=== PATIENT | female | born 1955 | race Caucasian/White ===

== ENCOUNTER 2017-02-25 00:26 | Observation (INO) ==
[2017-02-25] MEDS ORDERED: Ipratropium/Albuterol Neb 3 ML IH ONE ×2 (00:40→00:43)
--- NOTE | 2017-02-25 01:02 | Emergency Department Note ---
Disposition Clinical Impression: Pneumonia Disposition: Admitted As Inpatient Condition: Fair Time of Disposition: 02:15 URI/Sore Throat HPI - General Chief Complaint: ED Upper Respiratory Infection Stated Complaint: body aches, productive yellow/green cough Time Seen by Provider: 02/25/17 00:35 Source: patient Mode of arrival: ambulatory Limitations: no limitations Nursing Notes Reviewed: Yes Vital Signs Reviewed: Yes - History of Present Illness HPI Narrative: Slightly treated for an upper respiratory tract infection about a week ago started getting a bit better than start spiking fevers this past week she has had fever chills cough congestion runny nose bringing up thick yellow tenacious phlegm denies any apnea or cyanosis patient states that she is just not getting any better rise any abdominal pain or discomfort denies burning or urgency stinging any rashes or lesions migraine numbness tingling patient has dyspnea with activity worse than usual states she broke out with blisters on her lips on Sunday Pt Subjective Complaint: fever, cough, sore throat, nasal congestion Onset (ago): week(s) Duration: intermittent, gradually worsening Severity: moderate, severe Severity scale (1-10): 8 Improves with: nothing Worsens with: exertion If sputum, description: yellow, green Context: sick contacts Associated symptoms: Reports: fever, chills, myalgias, nasal congestion, cough, shortness of breath. Denies: voice changes, diaphoresis, headache, rhinorrhea, sore throat, stiff neck, chest pain, abdominal pain, nausea, vomiting, diarrhea , dysuria, rash, ear pain Treatments prior to arrival: acetaminophen, ibuprofen, antibiotics, other healthcare encounter for this problem - Related Data Home Medications Medication Instructions Recorded Confirmed Meloxicam 15 mg PO Q4-6H PRN 05/30/16 05/30/16 Promethazine Syrup [Phenergan 6.25 mg PO Q4HR PRN 05/30/16 05/30/16 Syrup] Previous Rx's Medication Instructions Recorded Acyclovir [Zovirax] 800 mg PO 5XD #35 tablet 05/30/16 Aquaphor/Maalox 1 appl TP Q6-8H #50 bottle 05/30/16 Ciprofloxacin [Cipro] 500 mg PO BID #20 tablet 05/30/16 HYDROcodone/Acet 5/325 mg [Elmer 1 tab PO Q6H #16 tab 05/30/16 5-325 mg] Mag Hydrox/Al Hydrox/Simeth 5 ml PO Q4H #200 oral.susp 05/30/16 [Maalox Advanced Suspension] Allergies Allergy/AdvReac Type Severity Reaction Status Date / Time codeine Allergy Palpitation Verified 10/19/14 11:45 s Penicillins [PCN] Allergy Rash Verified 10/19/14 11:45 adhesive AdvReac Rash Verified 10/19/14 11:45 latex AdvReac Rash Verified 10/19/14 11:45 All systems ED: reviewed and negative except as stated. Review of Systems: As Per HPI Constitutional: Reports: fever, chills, weakness Eyes: Denies: eye pain, eye discharge ENT ED: Reports: congestion. Denies: ear pain, throat pain, dental pain Cardiovascular: Denies: chest pain, palpitations, dyspnea on exertion Respiratory: Reports: cough, dyspnea, wheezes, sputum production Gastrointestinal: Denies: abdominal pain, nausea, vomiting Genitourinary: Denies: urgency, dyspareunia Musculoskeletal: Denies: back pain, neck pain Integumentary: Denies: rash, abrasion Neurological: Denies: headache, weakness Psychiatric: Denies: anxiety Endocrine: Denies: fatigue Hematological/Lymphatic: Denies: easy bleeding Allergic/Immunologic: Denies: facial swelling URI PMH - Past Medical History Medical history: Reports: hyperlipidemia, thyroid disease Surgical history: Reports: hysterectomy Psychiatric history: Reports: no psych history [employer] history: Reports: no [employer] history - Social History Smoking Status: Never smoker Alcohol use: Reports: none Drug use: Reports: none Physical Exam - General Limitations: no limitations General appearance: alert, in no apparent distress - Head Head exam: atraumatic, normocephalic, normal inspection - Eye Eye exam: Present: normal appearance, PERRL, EOMI - ENT ENT exam: normal exam, normal oropharynx, mucous membranes moist, TM's normal bilaterally, normal external ear exam, other (oral mucus membranes with herpetic stomatitis ) - Neck Neck exam: Present: normal inspection, full ROM, trachea midline - Chest Chest inspection: Present: normal inspection, symmetric chest wall rise - Respiratory Respiratory exam: Present: accessory muscle use, prolonged expiratory phase - Cardiovascular Cardiovascular exam: Present: regular rate, normal rhythm, normal heart sounds - Abdominal Exam Abdominal exam: Present: soft, Non-Tender, normal bowel sounds. Absent: mass, pulsatile mass - Extremities Exam Extremities exam: Present: normal inspection, full ROM, normal capillary refill. Absent: tenderness, pedal edema, joint swelling, calf tenderness - Expanded Upper Extremity Exam Shoulder exam: Present: normal inspection, full ROM Arm exam: Present: normal inspection, full ROM Elbow exam: Present: normal inspection, full ROM Forearm/Wrist exam: Present: normal inspection, full ROM Hand exam: Present: normal inspection, full ROM Neurosensory exam: Normal: radial nerve, ulnar nerve, median nerve Vascular exam: Normal: capillary refill, radial pulse, ulnar pulse - Expanded Lower Extremity Exam Hip/Pelvis exam: Present: normal inspection, full ROM Upper leg exam: Present: normal inspection, full ROM Knee exam: Present: normal inspection, full ROM Lower leg exam: Present: normal inspection, full ROM Ankle exam: Present: normal inspection, full ROM Foot/toe exam: Present: normal inspection, full ROM Neurovascular/Tendon exam: Present: normal capillary refill, normal fine/light touch. Absent: motor deficit, sensory deficit, tendon deficit Gait: observed and normal - Back Exam Back exam: Present: normal inspection, full ROM. Absent: muscle spasm - Neurological Exam Neurological exam: Present: alert, oriented X3, CN II-XII intact, normal gait, other (ill nontoxic) - Psychiatric Psychiatric exam: Present: normal affect, normal mood - Skin Skin exam: Present: warm, dry, intact, normal color Course Course Narrative: Seen and examined chest x-ray is obtained and she is given an aerosol treatment this did bring up a little bit of phlegm with aerosol treatment the patient on the chest x-ray shows to have multifocal opacity patches within the lung silvestre which should be consistent with pneumonia having been treated on antibiotics last weekend and now showing evidence of failure patient will be admitted for observation transfer to [facility] Vital Signs Temperature 99.5 F 02/25/17 00:29 Pulse Rate 90 02/25/17 00:29 Respiratory Rate 24 02/25/17 00:29 Blood Pressure 118/66 02/25/17 00:29 O2 Sat by Pulse Oximetry 92 02/25/17 00:29 Temperature 99.5 F 02/25/17 00:29 Pulse Rate 85 02/25/17 02:01 Respiratory Rate 21 02/25/17 02:01 Blood Pressure 118/60 02/25/17 02:01 O2 Sat by Pulse Oximetry 94 02/25/17 02:01 Oxygen Delivery Oxygen Delivery Room Air Upper Respiratory Infection - Differential Diagnosis Differential Diagnosis: Likely: upper respiratory infection, other viral infection, bronchitis, pneumonia - Medical Records Medical records reviewed: Yes I reviewed the patient's medical records. - Lab Data Lab results reviewed: Yes I reviewed the patient's lab results. Result diagrams: 02/25/17 01:40 Lab Results 02/25/17 02/25/17 Range/Units 01:40 01:40 WBC 12.2 H (4.3-11.1) K/mcL RBC 3.73 L (3.82-4.97) M/mcL Hgb 11.7 (11.5-15.4) g/dL Hct 35.4 (35.3-44.9) % MCV 94.9 (83.0-100.0) fL MCH 31.4 (28.0-33.3) pg MCHC 33.1 (31.6-35.5) g/dL RDW 13.5 (11.5-14.5) % Plt Count 190 (140-400) K/mcL MPV 12.4 (9.4-12.4) fL Immature Gran % 0.6 (0-4) % Seg Neutrophils % 80.5 % Lymphocytes % 12.3 % Monocytes % 5.2 % Eosinophils % 1.2 % Basophils % 0.2 % Neutrophils # 9.8 H (1.6-8.9) K/mcL Lymphocytes # 1.5 (0.6-4.6) K/mcL Monocytes # 0.6 (0.0-1.3) K/mcL Eosinophils # 0.2 (0.0-0.6) K/mcL Basophils # 0.0 (0.0-0.2) K/mcL PT 12.3 H (9.4-12.1) Seconds INR 1.1 APTT 28.5 (26.0-36.0) Seconds - Radiology Data Radiology results reviewed: Yes I reviewed the patient's radiology results. ITS Impressions Chest X-Ray 02/25/17 00:40 IMPRESSION: Patchy opacities in the lung bases, right greater than left. D/ / Gonzalo Hernandez MD / Gonzalo Hernandez MD Interpreting Provider: Gonzalo Hernandez MD Critical Care Time Critical Care Time: No
[2017-02-25] MEDS ORDERED: Azithromycin 500 MG in D5% in Water 250 ML IVPB ONE (01:24)
[2017-02-25 01:56] LABS: Basophils % 0.2 %; Eosinophils # 0.2 K/mcL (0.0-0.6); Eosinophils % 1.2 %; Hematocrit 35.4 % (35.3-44.9); Hemoglobin 11.7 g/dL (11.5-15.4); Immature Granulocytes % 0.6 % (0-4); Lymphocytes # 1.5 K/mcL (0.6-4.6); Lymphocytes % 12.3 %; Mean Corpuscular HGB Conc 33.1 g/dL (31.6-35.5); Mean Corpuscular Hemoglobin 31.4 pg (28.0-33.3); Mean Corpuscular Volume 94.9 fL (83.0-100.0); Mean Platelet Volume 12.4 fL (9.4-12.4); Monocytes # 0.6 K/mcL (0.0-1.3); Monocytes % 5.2 %; Neutrophils # 9.8 K/mcL (1.6-8.9); Platelet Count 190 K/mcL (140-400); Red Blood Count 3.73 M/mcL (3.82-4.97); Red Cell Distribution Width 13.5 % (11.5-14.5); Segmented Neutrophils % 80.5 %
[2017-02-25 02:03] LABS: INR 1.1; Prothrombin Time 12.3 Seconds (9.4-12.1)
[2017-02-25 02:06] LABS: Activated Partial Thrombo Time 28.5 Seconds (26.0-36.0)
[2017-02-25 02:13] LABS: BUN/Creatinine Ratio 16 (6-26); Blood Urea Nitrogen 17 mg/dL (7-20); Calcium 8.8 mg/dL (8.6-10.8); Carbon Dioxide 25 mEq/L (19-29); Chloride 106 mEq/L (98-109); Glucose 98 mg/dL (70-99); Osmolality,Calculated 292 (280-300); Sodium 140 mEq/L (136-145); eGFR For African Americans > 60 (> 60); eGFR For Non-African Americans 54 (> 60)
[2017-02-25] MEDS ORDERED: Acetaminophen 325 MG TABLET PO PRN (04:12)
[2017-02-25] MEDS ORDERED: Mag Hydrox/Al Hydrox/Simeth 30 ML UDC PO SCH (04:12)
[2017-02-25] MEDS ORDERED: 0.9 % Sodium Chloride 1,000 ML IVC SCH (04:12)
[2017-02-25] MEDS ORDERED: Promethazine Syrup 6.25 MG/5 ML PO PRN (04:12)
[2017-02-25] MEDS ORDERED: Aquaphor/Maalox 50 GM BOTTLE TP SCH (04:12)
[2017-02-25] MEDS ORDERED: Ibuprofen 400 MG TABLET PO PRN (04:12)
[2017-02-25] MEDS ORDERED: Naloxone 0.4 MG/ML INJ IVP PRN (04:12)
[2017-02-25] MEDS ORDERED: *HR* HYDROcodone/Acet 5/325 mg TABLET PO SCH (04:12)
[2017-02-25] MEDS ORDERED: Ondansetron 4 MG/2 ML VIAL IVP PRN (04:12)
[2017-02-25 04:26] VITALS: BP 127/79
[2017-02-25] MEDS ORDERED: Aspirin 81 MG TAB.CHEW PO ONE (07:26)
[2017-02-25] MEDS ORDERED: *HR* Enoxaparin 100 MG/ML SYRINGE SQ ONE (07:28)
--- NOTE | 2017-02-25 07:35 | Internal Med Progress Note ---
Date of Encounter: 02/25/17 Time of Encounter: 07:32 - Assessment and plan (1) Elevated troponin Current Visit: Yes Status: Acute Assessment and plan: She given aspirin Lovenox transferred to [facility] to the medicine services with consult cardiology for possibility of stress test or even possibly a heart catheterization I have spoke with the patient about the elevated troponin that her illness with a bilateral pneumonia could also be indicated which could be precipitating this elevation understands and agrees with Wade [facility] - Time Spent With Patient 25 - 35 minutes - Subjective Interval history: She was noted to have an abnormal monitor on telemetry as result EKG was done which shows a strain pattern with T wave inversion in [address] changes noted in the inferior leads with ST segment elevation patient has a little widening of the complex has some nonspecific changes noted which shows evidence of possible old anterior infarct with widening of the complex in the inferior lead and some possible lateral ischemic changes noted with a rate 70 9 PM 182 with QRS 19 QT 405 and axis -33 troponin was done which came back at 0.15 as result the patient will be transferred to [facility] on discussion with the patient as she had noted when she was seen in the ER the patient has had no chest pain no chest pressure she says short of breath cough congestion she has had flulike symptoms a been going on for about a week he did syncope she has been bringing up phlegm on exam she still has some intermittent wheezing in the lung feels her heart is regular rate and rhythm there is no calf pain no swelling no edema noted for range of motion extremities abdomen is soft supple positive bowel sounds I spoke again with Dr. Baxter will transfer the patient patient received aspirin and Lovenox here in the emergency room she will be transferred to [facility] for further management patient is in agreement spoke with Dr. Meek trust operations assistant as accepted the patient to [facility] telemetry services for further serial enzymes - Constitutional Vitals: Temp Pulse Resp BP Pulse Ox 97.5 F L 88 18 127/79 96 02/25/17 03:56 02/25/17 03:56 02/25/17 03:56 02/25/17 03:56 02/25/17 03:56 General appearance: Present: cooperative, A&O X 3, obese - Head Head exam: Present: atraumatic, normocephalic - Eye Eye exam: Present: PERRL, conjuntiva pink, sclera anicteric Pupils: Present: PERRL - Neck Neck exam general surgery: Present: supple, trachea midline. Absent: lymphadenopathy - Respiratory Respiratory exam: Present: decreased breath sounds, prolonged expiratory phase, rhonchi, wheezes. Absent: chest wall tenderness - Cardiovascular Cardiovascular exam: Present: RRR, +S1, +S2. Absent: diastolic murmur, gallop, rubs, systolic murmur - GI/Abdominal GI/Abdominal exam: Present: normal bowel sounds, soft, no peritoneal signs. Absent: distended, tenderness - Extremities Exam Extremities exam: Present: warm, radial pulses palpable and symmetrical. Absent : calf tenderness, cyanotic, pedal edema - Neurological Exam Neurological exam: Present: CN II-XII intact, oriented X3, no focal deficits. Absent: pronater drift, facial droop, speech deficit - Skin Skin exam: Present: dry, intact Internal Medicine: Result - Labs CBC & Chem 7: 02/25/17 01:40 02/25/17 01:40 Labs: Cardiac Enzymes 02/25/17 Range/Units 06:48 Troponin I 0.15 H* (0-0.03) ng/mL - ABG Interpretation ABG results: PT/INR, D-dimer PT 12.3 Seconds (9.4-12.1) H 02/25/17 01:40 - EKG Interpretation EKG Interpreted by Myself: Yes (see subjective part of note) EKG shows normal: sinus rhythm Rate: normal Consult Discharge Plan - Plan Referrals: Kenna Knapp, VICENTE [Primary Care Provider] - 1 week
[2017-02-25] MEDS ORDERED: Acyclovir 200 MG CAPSULE PO SCH (08:00)
--- NOTE | 2017-02-26 15:12 | Electrocardiograph Report ---
[address] [place] [address] Test Date: 2017-02-25 Pat Name: Elida Galicia Department: [id number] Room: [facility] Gender: F [employer]: [id number] : 1955 Requested By: Soledad Goss Order Number: [id number] Reading MD: Cam Elizondo Measurements Intervals [place] Rate: 79 P: 37 AK: 182 QRS: -33 QRSD: 109 T: 86 QT: 405 QTc: 440 Interpretive Statements SINUS RHYTHM INFERIOR MYOCARDIAL INFARCTION, PROBABLY OLD ANTEROSEPTAL MYOCARDIAL INFARCTION, OF INDETERMINATE AGE Electronically Signed On 02-26-2017 15:10:46 EST by Cam Elizondo
== END 2017-02-25 09:15 | disposition short-term general hospital (02) ==
LOC: INPPIK 00:26 → EMEROOPIK 00:26 → INPPIK 02:40
PROVIDERS: ADMIT Internal Medicine; ATTEND Internal Medicine